=== PATIENT | female | born 1980 | race Caucasian/White ===

== ENCOUNTER 2021-03-06 16:43 | Outpatient (CLI) | payer BC, SELFPAY ==
--- NOTE | ~2021-03-06 | MM_ITS ---
EXAMINATION: MM screening yong BI w kavita HISTORY: Screening mammogram TECHNIQUE: Craniocaudal and mediolateral oblique 3-D tomosynthesis images were obtained and synthetic 2-D images were generated. CAD analysis was submitted and interpreted. COMPARISON: No prior mammogram is available for comparison at this institution. BREAST PARENCHYMAL COMPOSITION: There are scattered areas of fibroglandular density. FINDINGS: There is no evidence of suspicious mass, calcification, or architectural distortion to sugg est malignancy in either breast. There has been no suspicious interval change. IMPRESSION: 1. No mammographic evidence of malignancy. 2. Recommend routine screening mammography in one year. BI-RADS Category 1: Negative Reviewed, dictated and finalized at [facility]. [employer]
== END 2021-03-06 16:44 | disposition home or self-care (01) ==
LOC: ANHIMG 16:45
PROVIDERS: PCP Family Medicine; Visit Provider Obstetrics & Gynecology
DX: Z12.31 Encounter for screening mammogram for malignant neoplasm of breast (principal)
CPT/HCPCS: 77063; 77067

== ENCOUNTER 2023-08-23 11:40 | Outpatient (CLI) | payer OTHER, SELFPAY ==
[2023-08-23 12:08] LABS: Basophils Absolute Auto 0.1 K/mm3 (0.0-0.1); Basophils Percent Auto 0.7 % (0.2-1.2); Eosinophils Absolute Auto 0.2 K/mm3 (0-0.3); Eosinophils Percent Auto 3.2 % (0-4.4); Hematocrit 39.5 % (37.0-47.0); Hemoglobin 12.5 g/dL (12.0-15.0); Immature Granulocyte Absolute 0.02 K/mm3 (0.00-0.031); Immature Granulocyte Percent A 0.3 % (0-0.5); Lymphocytes Absolute Auto 2.21 K/mm3 (0.9-3.2); Lymphocytes Percent Auto 31.8 % (18.3-44.2); Mean Corpuscular HGB Conc 31.6 g/dl (32-36); Mean Corpuscular Hemoglobin 26.4 pg (26-34); Mean Corpuscular Volume 83.5 fl (80-100); Mean Platelet Volume 8.9 fl (7.4-10.4); Monocytes Absolute Auto 0.5 K/mm3 (0.1-0.6); Monocytes Percent Auto 6.9 % (2.6-8.5); Neutrophils Percent Auto 57.1 % (45.5-73.1); Platelet Count Result 265 k/mm3 (150-375); Red Blood Count 4.73 M/mm3 (4.2-5.4); Red Cell Distribution Width 13.8 % (11.5-14.5)
[2023-08-23 12:13] LABS: Appearance Urine Clear (Clear); Bacteria Urine None Seen /hpf; Bilirubin Urine Negative (Negative); Blood Urine 1+ (Negative); Color Urine Yellow (Yellow); Glucose Urine UA Negative (Negative); Ketones Urine Negative (Negative); Leukocyte Esterase Ur Negative LEU/UL (Negative); Nitrate Urine Negative (Negative); Non Pathogenic Casts 0-2; Protein Urine Negative (Negative); RBC Urine 0-2 /hpf (0-2); Specific Grav Ur 1.012 (1.001-1.035); Squamous Epithelial Cell Urine None Seen /hpf (Few); Urobilinogen Urine 0.2 mg/dL (<2.0); WBC Urine 0-5 /hpf (0-3); pH Urine 5.5 (5.0-9.0)
[2023-08-23 12:17] LABS: Add Urine Microscopic? YES
[2023-08-23 12:20] LABS: Alanine Aminotransferase 15 U/L (6-35); Albumin Level 4.1 g/dL (3.5-5.1); Alkaline Phosphatase 66 U/L (38-126); Anion Gap 4 mmol/L (4-12); Aspartate Amino Transferase 20 U/L (14-36); Bilirubin,Total 0.4 mg/dL (0.2-1.3); Blood Urea Nitrogen 10 mg/dL (7-17); Calcium 8.8 mg/dL (8.4-10.2); Carbon Dioxide 28 mmol/L (22-30); Chloride 107 mmol/L (98-107); Cholesterol 186 mg/dL (0-200); Estimated Glomerular Filt Rate > 60; Glucose 92 mg/dL (65-110); HDL Direct 42 mg/dL; Potassium 4.5 mmol/L (3.4-5.0); Sodium 139 mmol/L (137-145); Triglycerides 171 mg/dL (<150); Uric Acid 5.3 mg/dL (2.5-7.5)
[2023-08-23 12:21] LABS: Rheumatoid Factor < 12.0 IU/ML (<12)
[2023-08-23 12:31] LABS: LDL Cholesterol Direct 115 mg/dL
[2023-08-23 12:41] LABS: Iron 76 ug/dL (37-170)
[2023-08-23 12:50] LABS: Percent Iron Saturation 23 % (20-50); Thyroid Stimulating Hormone 0.896 uIU/mL (0.465-4.680)
[2023-08-23 13:07] LABS: Erythrocyte Sedimentation Rate 16 mm/hr (0-20)
[2023-08-23 13:34] LABS: Folic Acid > 20.0 ng/mL (2.76->20)
[2023-08-25 11:38] LABS: ANA Cascade Screen NEGATIVE (NEGATIVE)
[2023-08-26 11:39] LABS: Vitamin D 1,25 (OH)2 Total 32 pg/mL (18-72); Vitamin D2 1,25 (OH)2 <8 pg/mL; Vitamin D3 1,25 (OH)2 32 pg/mL
== END 2023-08-23 11:41 | disposition home or self-care (01) ==
LOC: ANHLAB 11:41
PROVIDERS: PCP Family Medicine; Visit Provider Family Medicine
DX: Z00.00 Encounter for general adult medical examination without abnormal findings (principal); D51.9 Vitamin B12 deficiency anemia, unspecified; G89.29 Other chronic pain; M54.41 Lumbago with sciatica, right side; M54.42 Lumbago with sciatica, left side; E78.2 Mixed hyperlipidemia
CPT/HCPCS: 36415; 80053; 80061; 81001; 82607; 82652; 82728; 82746; 83540; 83550; 84443; 84550; 85025; 85652; 86038; 86225; 86235; 86364; 86430

== ENCOUNTER 2024-01-16 15:27 | Outpatient (CLI) | payer OTHER, SELFPAY ==
--- NOTE | ~2024-01-16 | CT_ITS ---
EXAMINATION: CT abdomen pelvis wo/w con DATE: 01/16/2024 16:12 INDICATION: Microscopic hematuria TECHNIQUE: Computed tomography (CT) of the abdomen and pelvis was performed without and subsequently with 100 cc Omnipaque 350 intravenous contrast. Automated exposure control and iterative reconstructi on technique were employed. Exam dose: 2279.09 mGy-cm total exam DLP. COMPARISON: None. FINDINGS: The lung bases are clear. Normal heart size. No pericardial or pleural effusion. Liver, spleen, pancreas, adrenal glands and kidneys as well as urinary bladder appear normal. No uri nary tract calculus or hydroureteronephrosis. No bile duct or pancreatic duct dilatation. Normal caliber of the abdominal aorta. No intraperitoneal or retroperitoneal or pelvic mass lesion o r lymphadenopathy or ascites. Normal appendix. No bowel obstruction or intraperitoneal free air. Moderately severe degenerative disc disease at L5-S1. No suspicious osteolytic or osteoblastic lesion s. IMPRESSION: No cause for microscopic hematuria detected; no urinary tract calculi, hydroureteronephr osis or urinary tract mass lesion Reviewed, dictated and finalized at [facility]. Reviewed, dictated and finalized at location [facility]. IMPRESSION: No cause for microscopic hematuria detected; no urinary tract calc damion, hydroureteronephrosis or urinary tract mass lesion
[2024-01-16 15:44] LABS: Estimated Glomerular Filt Rate > 60
== END 2024-01-16 15:28 | disposition home or self-care (01) ==
LOC: MICIMG 15:27
PROVIDERS: PCP Family Medicine; Visit Provider Urology
DX: R31.29 Other microscopic hematuria (principal)
CPT/HCPCS: 74178; Q9967

== ENCOUNTER 2025-03-08 02:54 | Day surgery (SDC) | payer BC, SELFPAY ==
[2025-02-15 15:15] VITALS: BMI 43.7
[2025-03-08 07:14] VITALS: BP 151/93; PULSE 81; RESP 18; TEMP 36.9; O2SAT 99; BMI 43.3
--- NOTE | 2025-03-08 07:21 | WPDANESEPPF ---
Anes - Initial Pre Proc Eval Procedure: Operation Date: 03/08/25 08:30 Proposed Procedures p Screening Colonoscopy - Ritchie Gong DO Date/Time: 03/08/25 07:21 Surgeon: Ritchie Gong DO Pre Op Diagnosis: Neoplasm screening Patient Data Age: 44 Gender: F Height: 1.65 m Weight: 118.2 kg Last Vital Signs Temp 36.9 C 03/08/25 07:14 Pulse 81 03/08/25 07:14 Resp 18 03/08/25 07:14 BP 151/93 H 03/08/25 07:14 Pulse Ox 99 03/08/25 07:14 O2 Del Method Room Air 03/08/25 07:14 Allergies Allergy/AdvReac Type Severity Reaction Status Date / Time No Known Allergies Allergy Mild Verified 02/15/25 15:02 Home Medications ?Medication ?Instructions ?Recorded ?Confirmed ?Type cyanocobalamin (vitamin B-12) 1,000 mcg PO DAILY 12/27/20 03/08/25 History 1,000 mcg tablet lisinopril 30 mg tablet 30 mg PO DAILY #90 tabs 06/07/24 03/08/25 Rx cholecalciferol (vitamin D3) 1,250 50,000 unit PO WEEKLY #12 caps 07/20/24 03/08/25 Rx mcg (50,000 unit) capsule oxybutynin chloride 10 mg 10 mg PO DAILY 09/14/24 03/08/25 History tablet,extended release 24 hr meloxicam 15 mg tablet 15 mg PO DAILY PRN pain #90 tabs 11/22/24 03/08/25 Rx hydrocodone 10 mg-acetaminophen 1 tablet PO Q4-6H PRN pain #120 02/23/25 03/08/25 Rx 325 mg tablet tabs Laboratory Tests 03/08/25 07:14 POC Urine HCG, Qual Pending Patient hx anesthesia problems: none Family hx anesthesia problems: none Results Review: All pre-operative results and documents have been reviewed as part of the pre-operative evaluation. [facility] Past Medical History Medical History Overactive bladder Acute bronchitis Mixed hyperlipidemia cholesterol 186, triglycerides 171, HDL 42, LDL 115 with ratio of 4.0 on 08/23/2023. Obesity (BMI 30-39.9) Chronic neck pain Folliculitis (~02/2022) nasal mucosa Seborrhea (~02/25/22) ear canals Plantar wart of both feet (~2020) 1 wart both feet Morbid obesity with BMI of 40.0-44.9, adult COVID-19 (03/19/21) COVID antibody test was positive at 22.78 on 04/05/21 BMI 39.0-39.9,adult Encounter for screening for COVID-19 (03/19/21) COVID symptoms starting 03/19/2021 with negative COVID test on 04/02/2021 Microscopic hematuria (12/23/20) Trace blood on urinalysis on 02/23/2022. 1+ blood on 08/23/2023. CT of the abdomen and pelvis on 01/16/2024 was normal except for severe lumbar spondylosis at L5-S1. normal cystoscopy 12/29/2023. Folic acid deficiency (non anemic) (12/23/20) folic acid low at 5.3 on 12/23/2020. Folic acid 24 with hemoglobin 12.5 on 02/23/2022. folic acid greater than 20 on 08/23/2023. Vitamin B12 deficiency anemia (12/23/20) vitamin B12 245 with goal greater than 400 on 12/23/2020. Level low at 336 with hemoglobin 12.5 on 02/23/2022.Level low at 259 with goal greater than 400 with hemoglobin 12.5 on 08/23/2023. Chronic thoracic back pain Encounter for wellness examination in adult Vitamin D insufficiency Normal at 45 on 02/23/2022. Normal at 32 on 08/23/2023 Chronic low back pain with bilateral sciatica Rheumatoid factor negative, HUAN negative, uric acid 5.3 on 08/23/2023. CT of the abdomen and pelvis on 01/16/2024 reveals moderate to severe spondylosis at L5-S1. Acne Body mass index (BMI) 40.0-44.9, adult (11/04/18) Family History Family History Grandparent Diabetes mellitus Family history of chronic obstructive pulmonary disease Mother Patient's mother is in good health Family history of chronic obstructive pulmonary disease Social History Social History Smoking packs per day: 0.5 Smoking cigarettes per day: 10.0 Years smoked: 22 Smoking pack-years: 11.00 Smoking status: Current every day smoker Tobacco type: cigarettes Alcohol intake: current Substance use: current Substance use type: marijuana Other substance usage details: gummies Last use: daily gummies Lack of Transportation: No Lack of Food: Never True Current Housing: I Have Housing Concerned About Future Housing: No Difficulty Paying Gas/Electric Bills: YES Difficulty Paying for Meds: YES Currently Unemployed: No Education: Associate Degree Difficulty w/ Childcare or Family Care: No Living arrangements: with family Spiritual care concerns: No Anes - Eval Final PreProcedure Day of Procedure 03/08/25 07:21 Patient weight: morbidly obese Heart: regular rate and rhythm Lungs: clear to auscultation Airway: Mallampati scale class II Neurological: alert and oriented Last oral intake: >/= 8 hours ASA classification: III Emergent: no Anesthetic plan: proceed Anesthesia type and monitoring: general GIVS and standard monitoring Results Review: All pre-operative results and documents have been reviewed as part of the pre-operative evaluation. Informed Consent: The patient's anesthetic plan and its attendant risks and benefits were discussed with the patient/family/POA. Questions were solicited and answers provided to the satisfaction of the patient/family/POA.
[2025-03-08 07:22] LABS: BEDSIDEPREGUCG Negative (Negative)
[2025-03-08] MEDS: LACTATED RINGERS 1,000 ML 150 ML IV CONT (07:26)
--- NOTE | 2025-03-08 08:21 | PM.IMHP2 ---
H&P: HPI History of Present Illness Date/Time: 03/08/25 08:21 Chief Complaint: Screening for colorectal cancer, family history of colon cancer Narrative: This is a 44-year-old woman who presents for her 1st colonoscopy. She denies any hematochezia or melena. Her mother was just diagnosed with colon cancer and within the past year. Review of Systems Review of Systems: All systems reviewed & are unremarkable except as noted in HPI and below Constitutional: Constitutional: Denies chills, Denies fever(s), Denies headache(s) and Denies weight loss Eyes: Eyes: Denies change in vision ENT: Denies dizziness, Denies headache(s), Denies neck mass and Denies throat swelling Cardiovascular: Cardiovascular: Denies chest pain, Denies lightheadedness and Denies dyspnea Respiratory: Respiratory: Denies cough, Denies dyspnea and Denies wheezing Gastrointestinal: Gastrointestinal: Denies abdominal pain, Denies change in bowel habits, Denies nausea and Denies vomiting Genitourinary: Genitourinary: Denies hematuria and Denies dysuria Musculoskeletal: Musculoskeletal: Reports as per HPI Integumentary/Breasts: Skin/Breast: Reports as per HPI Neurologic: Denies dizziness and Denies headache(s) Allergic/Immunologic: Allergic/Immunologic: Denies throat swelling and Denies wheezing [facility] Past Medical History Medical History Overactive bladder Acute bronchitis Mixed hyperlipidemia cholesterol 186, triglycerides 171, HDL 42, LDL 115 with ratio of 4.0 on 08/23/2023. Obesity (BMI 30-39.9) Chronic neck pain Folliculitis (~02/2022) nasal mucosa Seborrhea (~02/25/22) ear canals Plantar wart of both feet (~2020) 1 wart both feet Morbid obesity with BMI of 40.0-44.9, adult COVID-19 (03/19/21) COVID antibody test was positive at 22.78 on 04/05/21 BMI 39.0-39.9,adult Encounter for screening for COVID-19 (03/19/21) COVID symptoms starting 03/19/2021 with negative COVID test on 04/02/2021 Microscopic hematuria (12/23/20) Trace blood on urinalysis on 02/23/2022. 1+ blood on 08/23/2023. CT of the abdomen and pelvis on 01/16/2024 was normal except for severe lumbar spondylosis at L5-S1. normal cystoscopy 12/29/2023. Folic acid deficiency (non anemic) (12/23/20) folic acid low at 5.3 on 12/23/2020. Folic acid 24 with hemoglobin 12.5 on 02/23/2022. folic acid greater than 20 on 08/23/2023. Vitamin B12 deficiency anemia (12/23/20) vitamin B12 245 with goal greater than 400 on 12/23/2020. Level low at 336 with hemoglobin 12.5 on 02/23/2022.Level low at 259 with goal greater than 400 with hemoglobin 12.5 on 08/23/2023. Chronic thoracic back pain Encounter for wellness examination in adult Vitamin D insufficiency Normal at 45 on 02/23/2022. Normal at 32 on 08/23/2023 Chronic low back pain with bilateral sciatica Rheumatoid factor negative, HUAN negative, uric acid 5.3 on 08/23/2023. CT of the abdomen and pelvis on 01/16/2024 reveals moderate to severe spondylosis at L5-S1. Acne Body mass index (BMI) 40.0-44.9, adult (11/04/18) Family History Family History Grandparent Diabetes mellitus Family history of chronic obstructive pulmonary disease Mother Patient's mother is in good health Family history of chronic obstructive pulmonary disease Social History Social History Smoking packs per day: 0.5 Smoking cigarettes per day: 10.0 Years smoked: 22 Smoking pack-years: 11.00 Smoking status: Current every day smoker Tobacco type: cigarettes Alcohol intake: current Substance use: current Substance use type: marijuana Other substance usage details: gummies Last use: daily gummies Lack of Transportation: No Lack of Food: Never True Current Housing: I Have Housing Concerned About Future Housing: No Difficulty Paying Gas/Electric Bills: YES Difficulty Paying for Meds: YES Currently Unemployed: No Education: Associate Degree Difficulty w/ Childcare or Family Care: No Living arrangements: with family Spiritual care concerns: No Meds Home Medications and Allergies Home Medications ?Medication ?Instructions ?Recorded ?Confirmed ?Type cyanocobalamin (vitamin B-12) 1,000 mcg PO DAILY 12/27/20 03/08/25 History 1,000 mcg tablet lisinopril 30 mg tablet 30 mg PO DAILY #90 tabs 06/07/24 03/08/25 Rx cholecalciferol (vitamin D3) 1,250 50,000 unit PO WEEKLY #12 caps 07/20/24 03/08/25 Rx mcg (50,000 unit) capsule oxybutynin chloride 10 mg 10 mg PO DAILY 09/14/24 03/08/25 History tablet,extended release 24 hr meloxicam 15 mg tablet 15 mg PO DAILY PRN pain #90 tabs 11/22/24 03/08/25 Rx hydrocodone 10 mg-acetaminophen 1 tablet PO Q4-6H PRN pain #120 02/23/25 03/08/25 Rx 325 mg tablet tabs Allergies Allergy/AdvReac Type Severity Reaction Status Date / Time No Known Allergies Allergy Mild Verified 02/15/25 15:02 Vital Signs Vital Signs - 24 hr 03/08/25 07:14 Temperature 98.4 F Pulse Rate 81 Respiratory Rate 18 Blood Pressure 151/93 H Pulse Oximetry 99 Oxygen Delivery Room Air Exam Const: General: no acute distress and alert Orientation/consciousness: patient oriented x3 HENMT: Head: normocephalic and atraumatic Ears: hearing grossly normal bilaterally Face/Nose/Sinus: Normal nares present Mouth: Yes Normal oral and palatal mucosa present Eyes: Periorbital: periorbital findings normal Sclera: sclerae normal EOM: EOMs intact bilaterally Neck: Neck: normal visual inspection, no lymphadenopathy and trachea midline Chest: Chest palpation & inspection: normal inspection of the chest Resp: Effort & Inspection: normal respiratory effort Auscultation: clear to auscultation bilaterally Cardio: Jugular venous distension: no JVD Rate: regular rate Rhythm: regular rhythm Heart sounds: S1 normal heart sound present and S2 normal heart sound present Peripheral pulses: Peripheral pulses 2+ throughout GI: Inspection: normal to inspection GI Palp: Yes Soft to palpation, No Tenderness to palpation present (GI), No Guarding due to palpation present (GI) and No Rebound tenderness present Percussion: Yes normal to percussion Auscultation: normal bowel sounds : General: Yes no CVA tenderness Back/Spine/Pelvis: Back: no CVA tenderness Neuro: General: patient oriented x3, no focal motor deficits and CN's II-XI intact bilaterally Cognition (Neuro): normal cognition Speech: normal speech Motor exam (neuro): 5/5 motor strength present throughout Extrem: General: capillary refill normal and no clubbing, cyanosis or edema Assessment and Plan Assessment and plan (1) Family history of colon cancer: Code(s): Z80.0 - Family history of malignant neoplasm of digestive organs Status: Acute Assessment and Plan: I have recommended colonoscopy. I have discussed the procedure, risks, benefits, and alternatives. Questions were answered. Patient is agreeable to proceed.
--- NOTE | 2025-03-08 08:42 | S_PTH ---
PATIENT: Sylwia Del Angel LOC: TRIP #:[id number] AGE/SX: 44/F ROOM: RE03/08/[address]: Ritchie Gong DO : 1980 BED: DIS: 03/08/2025 SPEC #: [id number] RECD: 03/08/25 09:41 STATUS: TAJ RELilly #: [id number] NERI: 03/08/25 08:[address]: Ritchie Gong DEPT: [facility] Surgical RECD BY: Suri Mcdonnell ENTERED: 03/08/25 09:42 SP TYPE: Surgical OTHR DR: David Taylor MD Tissues: A - Colon Polypectomy Procedures: Hematoxylin and Eosin Stain Gross and Microscopic Level 4
[2025-03-08 08:45] VITALS: BP 127/101; PULSE 83; RESP 24; O2SAT 100
[2025-03-08 08:55] VITALS: BP 143/86; PULSE 82; RESP 18; O2SAT 100
[2025-03-08 09:05] VITALS: BP 142/84; PULSE 77; RESP 18; O2SAT 99
== END 2025-03-08 09:10 | disposition home or self-care (01) ==
PROVIDERS: Anesthesiology; PCP Family Medicine; Visit Provider Surgery
PROC: 0DJD8ZZ Inspection of Lower Intestinal Tract, Via Natural or Artificial Opening Endoscopic (ICD-10-PCS; CPT 45378; principal; 2025-03-08 08:30)
DX: Z12.11 Encounter for screening for malignant neoplasm of colon (principal); K63.5 Polyp of colon; Z80.0 Family history of malignant neoplasm of digestive organs; F17.210 Nicotine dependence, cigarettes, uncomplicated; F12.90 Cannabis use, unspecified, uncomplicated; E66.01 Morbid (severe) obesity due to excess calories; Z68.41 Body mass index [BMI] 40.0-44.9, adult
CPT/HCPCS: 45380; 88305; J2003; J2704; J7120